=== PATIENT | female | born 1995 | race American Indian/Alaskan Native ===

== ENCOUNTER 2020-03-07 00:26 | Inpatient (IN) | payer MEDICAID ==
[2020-03-07] MEDS ORDERED: Lidocaine 1% 50 ML MDV INJECT PRN (00:50)
[2020-03-07] MEDS ORDERED: Methylergonovine 0.2 MG/1 ML Amp IM PRN (00:50)
[2020-03-07] MEDS ORDERED: Misoprostol 25 MCG (1/4 of 100 MCG) Tab VAG PRN ×2 (00:50)
[2020-03-07] MEDS ORDERED: Nalbuphine 10 MG/1 ML Vial IVPUSH PRN (00:50)
[2020-03-07] MEDS ORDERED: Sodium Chloride 0.9% 10 ML SDV IV PRN ×2 (00:50→09:50)
[2020-03-07] MEDS ORDERED: Butorphanol 1 MG/ML SDV IVPUSH PRN (00:50)
[2020-03-07] MEDS ORDERED: Sodium Chloride 0.9% 10 ML Syringe FLUSH PRN ×2 (00:50→09:50)
[2020-03-07] MEDS ORDERED: Terbutaline 1 MG/ML SDV SUBCUT PRN (00:50)
[2020-03-07] MEDS ORDERED: Tranexamic Acid 1,000 MG in Sodium Chloride 0.9% 100 ML IV PRN ×2 (00:50→18:43)
[2020-03-07] MEDS ORDERED: Sodium Chloride 0.9% 2.5 ML Syringe FLUSH PRN ×2 (00:50→09:50)
[2020-03-07] MEDS ORDERED: Misoprostol 200 MCG Tab PO PRN (00:50)
[2020-03-07] MEDS ORDERED: Water For Irrigation,Sterile 1,000 ML Container IRR PRN (00:50)
[2020-03-07] MEDS ORDERED: Carboprost Tromethamine 250 MCG/1 ML Amp IM PRN (00:50)
[2020-03-07] MEDS ORDERED: Oxytocin/0.9 % Sodium Chloride 30 UNIT/500 ML BAG IV SCH ×2 (01:00)
[2020-03-07] MEDS: Lactated Ringers 1,000 ML IV SCH ×3 (01:44→09:51)
[2020-03-07] MEDS ORDERED: Ondansetron 4 MG/2 ML SDV IVPUSH PRN (07:33)
--- NOTE | 2020-03-07 09:17 | PCM.PREANE ---
Preanesthetic Assessment - Anesthesia/Transfusion/Family Hx Anesthesia History: Prior Anesthesia Without Reaction Family History of Anesthesia Reaction: No Transfusion History: No Prior Transfusion(s) - Review of Systems General: No Symptoms Pulmonary: No Symptoms Cardiovascular: No Symptoms Gastrointestinal: No Symptoms Neurological: No Symptoms Other: Reports: None - Physical Assessment Height: 5 ft 8.75 in Weight: 136.078 kg ASA Class: 2 Mental Status: Alert & Oriented x3 Airway Class: Mallampati = 2 Dentition: Reports: Normal Dentition Thyro-Mental Finger Breadths: 3 Mouth Opening Finger Breadths: 3 ROM/Head Extension: Full Lungs: Clear to Auscultation, Normal Respiratory Effort Cardiovascular: Regular Rate, Regular Rhythm - Lab Values: Laboratory Last Values WBC 14.33 K/uL (4.0-11.0) H 03/07/20 01:25 RBC 4.25 M/uL (4.30-5.90) L 03/07/20 01:25 Hgb 12.0 g/dL (12.0-16.0) 03/07/20 01:25 Hct 35.9 % (36.0-46.0) L 03/07/20 01:25 MCV 84.5 fL (80.0-98.0) 03/07/20 01:25 MCH 28.2 pg (27.0-32.0) 03/07/20 01:25 MCHC 33.4 g/dL (31.0-37.0) 03/07/20 01:25 RDW Std Deviation 41.3 fl (28.0-62.0) 03/07/20 01:25 RDW Coeff of Garrett 14 % (11.0-15.0) 03/07/20 01:25 Plt Count 313 K/uL (150-400) 03/07/20 01:25 MPV 10.50 fL (7.40-12.00) 03/07/20 01:25 Nucleated RBC % 0.0 /100WBC 03/07/20 01:25 Nucleated RBCs # 0 K/uL 03/07/20 01:25 COVID-19 ([facility]) NEGATIVE (NEGATIVE) 03/07/20 01:45 Blood Type O POSITIVE 03/07/20 01:25 Antibody Screen NEGATIVE 03/07/20 01:25 - Allergies Allergies/Adverse Reactions: Allergies Allergy/AdvReac Type Severity Reaction Status Date / Time Sulfa (Sulfonamide Allergy Other Verified 03/07/20 00:48 Antibiotics) - Acknowledgements Anesthesia Type Planned: Epidural Pt an Appropriate Candidate for the Planned Anesthesia: Yes Alternatives and Risks of Anesthesia Discussed w Pt/Guardian: Yes Pt/Guardian Understands and Agrees with Anesthesia Plan: Yes PreAnesthesia Questionnaire HEENT History: Reports: None Cardiovascular History: Reports: None Respiratory History: Reports: None Gastrointestinal History: Reports: GERD Genitourinary History: Reports: None 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: : 2 Para: 1 LMP (Approximate): Musculoskeletal History: Reports: None Neurological History: Reports: None Psychiatric History: Reports: Anxiety, Depression Endocrine/Metabolic History: Reports: Other (See Below) Other Endocrine/Metabolic History: Took Thyroid medication at one time but no longer needs it now Hematologic History: Reports: None Immunologic History: Reports: None Oncologic (Cancer) History: Reports: None Dermatologic History: Reports: None - Infectious Disease History Infectious Disease History: Reports: None - Past Surgical History HEENT Surgical History: Reports: Tonsillectomy Other HEENT Surgeries/Procedures: wisdom tooth extraction - SUBSTANCE USE Smoking Status *Q: Former Smoker Second Hand Smoke Exposure: No Recreational Drug Use History: No - HOME MEDS Home Medications: Home Meds Acetaminophen [Tylenol Extra Strength] 1,000 mg PO Q4H PRN #0 tablet 01/05/15 [Rx] Ibuprofen [Motrin] 800 mg PO Q6H PRN #30 tablet 01/05/15 [Rx] oxyCODONE 5 mg PO Q2H PRN #30 tablet 01/05/15 [Rx] - CURRENT (IN HOUSE) MEDS Current Meds: Current Medications Butorphanol Tartrate (Stadol) 1 mg IVPUSH Q1H PRN PRN Reason: Pain Last Admin: 03/07/20 06:49 Dose: 1 mg Documented by: Carboprost Tromethamine (Hemabate Ds) 250 mcg IM ASDIRECTED PRN PRN Reason: Post Hemorrhage Oxytocin/Sodium Chloride (Oxytocin 30 Unit/500 Ml-Ns) 30 unit in 500 mls @ 500 mls/hr IV TITRATE SEAN Tranexamic Acid 1,000 mg/ (Sodium Chloride) 110 mls @ 660 mls/hr IV ONETIME PRN PRN Reason: Bleeding Oxytocin/Sodium Chloride (Oxytocin 30 Unit/500 Ml-Ns) 30 unit in 500 mls @ 2 mls/hr IV TITRATE SEAN; Protocol Lactated Ringer's (Ringers, Lactated) 1,000 mls @ 150 mls/hr IV ASDIRECTED SEAN Last Admin: 03/07/20 08:33 Dose: 999 mls/hr Documented by: Lidocaine HCl (Xylocaine 1%) 50 ml INJECT ONETIME PRN PRN Reason: Laceration repair Methylergonovine Maleate (Methergine) 0.2 mg IM ASDIRECTED PRN PRN Reason: Post Hemorrhage Misoprostol (Cytotec) 200 mcg PO ONETIME PRN PRN Reason: Post Hemorrhage Misoprostol (Cytotec) 25 mcg VAG ONETIME PRN PRN Reason: Cervical Ripening Last Admin: 03/07/20 01:44 Dose: 25 mcg Documented by: Misoprostol (Cytotec) 25 mcg VAG Q6H PRN PRN Reason: Cervical Ripening Nalbuphine HCl (Nubain) 10 mg IVPUSH Q1H PRN PRN Reason: Pain (severe 7-10) Ondansetron HCl (Zofran) 4 mg IVPUSH Q6H PRN PRN Reason: Nausea/Vomiting Last Admin: 03/07/20 07:41 Dose: 4 mg Documented by: Sodium Chloride (Saline Flush) 10 ml FLUSH ASDIRECTED PRN PRN Reason: Keep Vein Open Sodium Chloride (Saline Flush) 2.5 ml FLUSH ASDIRECTED PRN PRN Reason: Keep Vein Open Sodium Chloride (Normal Saline) 10 ml IV ASDIRECTED PRN PRN Reason: IV Use Sterile Water (Sterile Water For Irrigation) 1,000 ml IRR ASDIRECTED PRN PRN Reason: delivery Terbutaline Sulfate (Brethine) 0.25 mg SUBCUT ASDIRECTED PRN PRN Reason: Tacysystole
[2020-03-07] MEDS ORDERED: Bupivicaine/fentaNYL/NS 250 ML ONE (09:18)
[2020-03-07] MEDS ORDERED: Magnesium Sulfate/Water 4 GM in Premix Bag 1 BAG IV ONE (09:50)
[2020-03-07] MEDS ORDERED: Calcium Gluconate 10% 1 GM/10 ML SDV IV PRN (09:50)
[2020-03-07 09:55] LABS: BLOOD UREA NITROGEN,BUN 7 mg/dL (7.0-18.0); CARBON DIOXIDE,CO2 20.8 mmol/L (21.0-32.0); CHLORIDE,CL 103 mmol/L (98-107); GLUCOSE RANDOM 103 mg/dL (74-106); POTASSIUM,K 4.1 mmol/L (3.5-5.1); SODIUM,NA 135 mmol/L (136-145)
[2020-03-07] MEDS ORDERED: Magnesium Sulfate/Water 20 GM/500 ML BAG IV SCH (10:00)
[2020-03-07] MEDS: Magnesium Sulfate/Water 20 GM/500 ML BAG IV SCH ×2 (10:37→20:15)
[2020-03-07] MEDS ORDERED: Witch Hazel Medicated Pads 40/Jar TOP PRN (18:43)
[2020-03-07] MEDS ORDERED: Docusate Sodium 100 MG Cap PO PRN (18:43)
[2020-03-07] MEDS ORDERED: Bisacodyl 10 MG Supp RECTAL PRN (18:43)
[2020-03-07] MEDS ORDERED: Benzocaine/Menthol 20%-0.5% Spray 78 GM Cannister TOP PRN (18:43)
[2020-03-07] MEDS ORDERED: Lanolin 100% Cream 7 GM Tube TOP PRN (18:43)
[2020-03-07] MEDS ORDERED: Acetaminophen 500 MG Tab PO PRN (18:43)
[2020-03-07] MEDS ORDERED: Ibuprofen 400 MG Tab PO PRN (18:43)
--- NOTE | 2020-03-07 19:05 | PCM.DEL ---
L & D Note - General Info Date of Service: 03/07/20 Mother's Due Date: 03/13/20 - Delivery Note Labor: Augmented by ARM, Augmented by Oxytocin, Induced by Oxytocin Cervical Ripening Method: Misoprostil, Oxytocin Delivery Outcome: Livebirth Infant Delivery Method: Spontaneous Vaginal Delivery-Single Delivery Mode: Spontaneous Presentation: Right Occiput Anterior (ROGER) Nuchal Cord: None Anesthesia Type: Epidural Amniotic Fluid Description: Clear Episiotomy Type: None Laceration: 2nd Degree Suture type: Vicryl Suture size: 3-0 Placenta: Intact, Spontaneous Cord: 3 Vessels Estimated Blood Loss: 250 : Bulb Syringe, Stimulated, Warmed Provider: Josie Mayen Score 1 min: 9 Score 5 min: 9 Second Stage Interventions: Reports: Encouragement Given, Pushing, Feet in Foot Rests Delivery Comments (Free Text/Narrative):: Patient is a 25 year old who presented at 39w1d for induction of labor with pitocin and cytotec for essential hypertension and distance at 0038. Patient is O+, Rubella immune, GBS negative; received routine care. She has a history of essential hypertension, hypothyroidism and asthma. Cytotec was given at 0145. The patient was noted to have elevated blood pressures in the 150s per the nursing staff; labs to evaluate for preeclampsia, including CBC, CMP, uric acid and protein/creatinine ratio were ordered. AROM was done at 0811 with clear fluid. An Epidural was placed at 0928. The patient's protein/creatinine ratio was found to be 0.6 and magnesium was started at 1037 and blood pressures remained in the 120s systolically. The patient continued to progress and was complete at 1630. She began to push at 1740 and a live female infant weighing 3500 g was delivered via normal spontaneous vaginal delivery with Apgars of 9/9. The infant was suctioned and placed on the mother's abdomen. The cried spontaneously and was dried and stimulated. The cord was then clamped and cut by the father. The infant was moved to the warmer. Arterial and venous cord blood was collected as well as cord blood. The placenta was delivered spontaneously and found to be intact upon delivery; a three vessel cord was noted as well. Following delivery of the placenta the vaginal mucosa was inspected and there was noted to be a midline 2nd degree laceration. This was repaired with 3-0 Vicryl. The fundus was then massaged and the patient appeared to be hemodynamically stable. - General Info Date of Service: 03/07/20 - Patient Data Weight - Most Recent: 300 lb I&O - Last 24 Hours: Intake & Output 03/07/20 03/07/20 03/07/20 06:59 14:59 22:59 Intake Total 1701 203 Output Total 950 650 Balance 751 -447 Lab Results Last 24 Hours: Laboratory Results - last 24 hr 03/07/20 03/07/20 03/07/20 Range/Units 01:25 01:25 01:45 WBC 14.33 H (4.0-11.0) K/uL RBC 4.25 L (4.30-5.90) M/uL Hgb 12.0 (12.0-16.0) g/dL Hct 35.9 L (36.0-46.0) % MCV 84.5 (80.0-98.0) fL MCH 28.2 (27.0-32.0) pg MCHC 33.4 (31.0-37.0) g/dL RDW Std Deviation 41.3 (28.0-62.0) fl RDW Coeff of Garrett 14 (11.0-15.0) % Plt Count 313 (150-400) K/uL MPV 10.50 (7.40-12.00) fL Neutrophils % (Manual) (48.0-80.0) % Band Neutrophils % % Lymphocytes % (Manual) (16.0-40.0) % Monocytes % (Manual) (0.0-15.0) % Eosinophils % (Manual) (0.0-7.0) % Basophils % (Manual) (0.0-1.5) % Nucleated RBC % 0.0 /100WBC Absolute Seg Neuts (1.4-5.7) Band Neutrophils # Lymphocytes # (Manual) (0.6-2.4) Monocytes # (Manual) (0.0-0.8) Eosinophils # (Manual) (0.0-0.7) Basophils # (Manual) (0.0-0.1) Nucleated RBCs # 0 K/uL Cord ABG pH (7.18-7.38) Cord ABG Base Excess (-10--2) Cord VBG pH (7.25-7.45) Cord VBG Base Excess (-10--2) Sodium (136-145) mmol/L Potassium (3.5-5.1) mmol/L Chloride (98-107) mmol/L Carbon Dioxide (21.0-32.0) mmol/L BUN (7.0-18.0) mg/dL Creatinine (0.6-1.0) mg/dL Est Cr Clr Drug Dosing mL/min Estimated GFR (MDRD) ml/min Glucose (74-106) mg/dL Uric Acid (2.6-7.2) mg/dL Calcium (8.5-10.1) mg/dL Magnesium (1.8-2.4) mg/dL Total Bilirubin (0.2-1.0) mg/dL AST (15-37) IU/L ALT (14-63) IU/L Alkaline Phosphatase (46-116) U/L Total Protein (6.4-8.2) g/dL Albumin (3.4-5.0) g/dL Globulin (2.6-4.0) g/dL Albumin/Globulin Ratio (0.9-1.6) Ur Random Creatinine mg/dL U Random Total Protein (<11.9) mg/dL Protein/Creatinin Ratio COVID-19 ([facility]) NEGATIVE (NEGATIVE) Blood Type O POSITIVE Antibody Screen NEGATIVE 03/07/20 03/07/20 03/07/20 Range/Units 08:44 09:03 09:03 WBC 14.19 H (4.0-11.0) K/uL RBC 4.30 (4.30-5.90) M/uL Hgb 12.3 (12.0-16.0) g/dL Hct 36.2 (36.0-46.0) % MCV 84.2 (80.0-98.0) fL MCH 28.6 (27.0-32.0) pg MCHC 34.0 (31.0-37.0) g/dL RDW Std Deviation 40.6 (28.0-62.0) fl RDW Coeff of Garrett 14 (11.0-15.0) % Plt Count 355 (150-400) K/uL MPV 10.00 (7.40-12.00) fL Neutrophils % (Manual) 72 (48.0-80.0) % Band Neutrophils % 1 % Lymphocytes % (Manual) 13 L (16.0-40.0) % Monocytes % (Manual) 10 (0.0-15.0) % Eosinophils % (Manual) 2 (0.0-7.0) % Basophils % (Manual) 2 H (0.0-1.5) % Nucleated RBC % 0.0 /100WBC Absolute Seg Neuts 10.2 H (1.4-5.7) Band Neutrophils # 0.1 Lymphocytes # (Manual) 1.8 (0.6-2.4) Monocytes # (Manual) 1.4 H (0.0-0.8) Eosinophils # (Manual) 0.3 (0.0-0.7) Basophils # (Manual) 0.3 H (0.0-0.1) Nucleated RBCs # K/uL Cord ABG pH (7.18-7.38) Cord ABG Base Excess (-10--2) Cord VBG pH (7.25-7.45) Cord VBG Base Excess (-10--2) Sodium 135 L (136-145) mmol/L Potassium 4.1 (3.5-5.1) mmol/L Chloride 103 (98-107) mmol/L Carbon Dioxide 20.8 L (21.0-32.0) mmol/L BUN 7 (7.0-18.0) mg/dL Creatinine 0.6 (0.6-1.0) mg/dL Est Cr Clr Drug Dosing 148.50 mL/min Estimated GFR (MDRD) > 60.0 ml/min Glucose 103 (74-106) mg/dL Uric Acid 4.6 (2.6-7.2) mg/dL Calcium 7.9 L (8.5-10.1) mg/dL Magnesium (1.8-2.4) mg/dL Total Bilirubin 0.2 (0.2-1.0) mg/dL AST 11 L (15-37) IU/L ALT 13 L (14-63) IU/L Alkaline Phosphatase 120 H (46-116) U/L Total Protein 6.3 L (6.4-8.2) g/dL Albumin 2.6 L (3.4-5.0) g/dL Globulin 3.7 (2.6-4.0) g/dL Albumin/Globulin Ratio 0.7 L (0.9-1.6) Ur Random Creatinine 322.8 mg/dL U Random Total Protein 187.5 H (<11.9) mg/dL Protein/Creatinin Ratio 0.6 COVID-19 ([facility]) (NEGATIVE) Blood Type Antibody Screen 03/07/20 03/07/20 Range/Units 14:36 17:53 WBC (4.0-11.0) K/uL RBC (4.30-5.90) M/uL Hgb (12.0-16.0) g/dL Hct (36.0-46.0) % MCV (80.0-98.0) fL MCH (27.0-32.0) pg MCHC (31.0-37.0) g/dL RDW Std Deviation (28.0-62.0) fl RDW Coeff of Garrett (11.0-15.0) % Plt Count (150-400) K/uL MPV (7.40-12.00) fL Neutrophils % (Manual) (48.0-80.0) % Band Neutrophils % % Lymphocytes % (Manual) (16.0-40.0) % Monocytes % (Manual) (0.0-15.0) % Eosinophils % (Manual) (0.0-7.0) % Basophils % (Manual) (0.0-1.5) % Nucleated RBC % /100WBC Absolute Seg Neuts (1.4-5.7) Band Neutrophils # Lymphocytes # (Manual) (0.6-2.4) Monocytes # (Manual) (0.0-0.8) Eosinophils # (Manual) (0.0-0.7) Basophils # (Manual) (0.0-0.1) Nucleated RBCs # K/uL Cord ABG pH 7.241 (7.18-7.38) Cord ABG Base Excess -9 (-10--2) Cord VBG pH 7.274 (7.25-7.45) Cord VBG Base Excess -7 (-10--2) Sodium (136-145) mmol/L Potassium (3.5-5.1) mmol/L Chloride (98-107) mmol/L Carbon Dioxide (21.0-32.0) mmol/L BUN (7.0-18.0) mg/dL Creatinine (0.6-1.0) mg/dL Est Cr Clr Drug Dosing mL/min Estimated GFR (MDRD) ml/min Glucose (74-106) mg/dL Uric Acid (2.6-7.2) mg/dL Calcium (8.5-10.1) mg/dL Magnesium 3.9 H (1.8-2.4) mg/dL Total Bilirubin (0.2-1.0) mg/dL AST (15-37) IU/L ALT (14-63) IU/L Alkaline Phosphatase (46-116) U/L Total Protein (6.4-8.2) g/dL Albumin (3.4-5.0) g/dL Globulin (2.6-4.0) g/dL Albumin/Globulin Ratio (0.9-1.6) Ur Random Creatinine mg/dL U Random Total Protein (<11.9) mg/dL Protein/Creatinin Ratio COVID-19 ([facility]) (NEGATIVE) Blood Type Antibody Screen Med Orders - Current: Current Medications Acetaminophen (Tylenol Extra Strength) 500 mg PO Q4H PRN PRN Reason: Pain Acetaminophen (Tylenol Extra Strength) 1,000 mg PO Q4H PRN PRN Reason: Pain Benzocaine/Menthol (Dermoplast Pain Relief 20%-0.5% [place]) 0 gm TOP ASDIRECTED PRN PRN Reason: Perineal Comfort Measure Bisacodyl (Dulcolax) 10 mg RECTAL ONETIME PRN PRN Reason: Constipation Calcium Gluconate (Calcium Gluconate) 1 gm IV ASDIRECTED PRN PRN Reason: respiratory distress Docusate Sodium (Colace) 100 mg PO BID PRN PRN Reason: Constipation Emollient Ointment (Lansinoh Hpa) 0 gm TOP ASDIRECTED PRN PRN Reason: Sore Nipples Oxytocin/Sodium Chloride (Oxytocin 30 Unit/500 Ml-Ns) 30 unit in 500 mls @ 500 mls/hr IV TITRATE SEAN Oxytocin/Sodium Chloride (Oxytocin 30 Unit/500 Ml-Ns) 30 unit in 500 mls @ 2 mls/hr IV TITRATE SEAN; Protocol Last Titration: 03/07/20 17:50 Dose: 999 munits/min, 999 mls/hr Documented by: Lactated Ringer's (Ringers, Lactated) 1,000 mls @ 150 mls/hr IV ASDIRECTED [facility] Last Admin: 03/07/20 09:51 Dose: 25 mls/hr Documented by: Magnesium Sulfate (Magnesium Sulfate In Water Premix) 20 gm in 500 mls @ 50 mls/hr IV Q10H [facility] Last Admin: 03/07/20 10:37 Dose: 2 gm/hr, 50 mls/hr Documented by: Tranexamic Acid 1,000 mg/ (Sodium Chloride) 110 mls @ 660 mls/hr IV ONETIME PRN PRN Reason: Bleeding Ibuprofen (Motrin) 400 mg PO Q4H PRN PRN Reason: Pain Ibuprofen (Motrin) 800 mg PO Q6H PRN PRN Reason: Pain Witch Rosalba (Tucks) 1 pad TOP ASDIRECTED PRN PRN Reason: comfort care Discontinued Medications Butorphanol Tartrate (Stadol) 1 mg IVPUSH Q1H PRN PRN Reason: Pain Last Admin: 03/07/20 06:49 Dose: 1 mg Documented by: Carboprost Tromethamine (Hemabate Ds) 250 mcg IM ASDIRECTED PRN PRN Reason: Post Hemorrhage Tranexamic Acid 1,000 mg/ (Sodium Chloride) 110 mls @ 660 mls/hr IV ONETIME PRN PRN Reason: Bleeding Fentanyl/Bupivacaine HCl (Fentanyl/Bupivacaine/Ns 2 Mcg-0.125% 250 Ml) Confirm Administered Dose 250 mls @ as directed .ROUTE .STK-MED ONE Stop: 03/07/20 09:19 Magnesium Sulfate 4 gm/ Premix 100 mls @ 300 mls/hr IV BOLUS ONE Stop: 03/07/20 10:09 Last Infusion: 03/07/20 10:37 Dose: Infused Documented by: Magnesium Sulfate (Magnesium Sulfate In Water Premix) 20 gm in 500 mls @ 50 mls/hr IV ASDIRECTED [facility] Lidocaine HCl (Xylocaine 1%) 50 ml INJECT ONETIME PRN PRN Reason: Laceration repair Methylergonovine Maleate (Methergine) 0.2 mg IM ASDIRECTED PRN PRN Reason: Post Hemorrhage Misoprostol (Cytotec) 200 mcg PO ONETIME PRN PRN Reason: Post Hemorrhage Misoprostol (Cytotec) 25 mcg VAG ONETIME PRN PRN Reason: Cervical Ripening Last Admin: 03/07/20 01:44 Dose: 25 mcg Documented by: Misoprostol (Cytotec) 25 mcg VAG Q6H PRN PRN Reason: Cervical Ripening Nalbuphine HCl (Nubain) 10 mg IVPUSH Q1H PRN PRN Reason: Pain (severe 7-10) Ondansetron HCl (Zofran) 4 mg IVPUSH Q6H PRN PRN Reason: Nausea/Vomiting Last Admin: 03/07/20 07:41 Dose: 4 mg Documented by: Sodium Chloride (Saline Flush) 10 ml FLUSH ASDIRECTED PRN PRN Reason: Keep Vein Open Sodium Chloride (Saline Flush) 2.5 ml FLUSH ASDIRECTED PRN PRN Reason: Keep Vein Open Sodium Chloride (Normal Saline) 10 ml IV ASDIRECTED PRN PRN Reason: IV Use Sodium Chloride (Saline Flush) 10 ml FLUSH ASDIRECTED PRN PRN Reason: Keep Vein Open Sodium Chloride (Saline Flush) 2.5 ml FLUSH ASDIRECTED PRN PRN Reason: Keep Vein Open Sodium Chloride (Normal Saline) 10 ml IV ASDIRECTED PRN PRN Reason: IV Use Sterile Water (Sterile Water For Irrigation) 1,000 ml IRR ASDIRECTED PRN PRN Reason: delivery Terbutaline Sulfate (Brethine) 0.25 mg SUBCUT ASDIRECTED PRN PRN Reason: Tacysystole - Problem List & Annotations (1) Essential hypertension SNOMED Code(s): 13560294 Code(s): I10 - ESSENTIAL (PRIMARY) HYPERTENSION Status: Acute Current Visit: Yes (2) Pre-eclampsia added to pre-existing hypertension SNOMED Code(s): 74406655 Code(s): O11.9 - PRE-EXISTING HYPERTENSION WITH PRE-ECLAMPSIA, UNSP TRIMESTER Status: Acute Current Visit: Yes (3) Hypothyroidism SNOMED Code(s): 69261350 Code(s): E03.9 - HYPOTHYROIDISM, UNSPECIFIED Status: Acute Current Visit: Yes (4) Asthma SNOMED Code(s): 488018987 Code(s): J45.909 - UNSPECIFIED ASTHMA, UNCOMPLICATED Status: Acute Current Visit: Yes (5) Vaginal delivery SNOMED Code(s): 750084435 Code(s): O80 - ENCOUNTER FOR FULL-TERM UNCOMPLICATED DELIVERY Status: Acute Current Visit: No - Problem List Review Problem List Initiated/Reviewed/Updated: Yes - Assessment Assessment:: Patient is a 25 year old female who presented for induction of labor at 39w1d due to essential hypertension and distance. Elevated blood pressure and protein/creatinine ratio of 0.6 following admission, patient was started on Magnesium Sulfate for management of preeclampsia. of a live female weighing 3500 g with apgars of 9/9 - Plan Plan:: 1. GBS negative 2. Rubella Immune 3. O+ with a negative antibody screen 4. Preeclampsia - elevated blood pressure with protein/creatinine ratio of 0.6; uric acid 4.6, no evidence of thrombocytopenia or elevated LFTs. Patient started on Magnesium Sulfate at 1037; blood pressures remained stable. Patient did report a mild headache . - [place] in place to monitoring TIERRA - Continue Magnesium for 24 hours - Serial clinical exams - Monitor Magnesium levels q 6 hours - Patient restricted to bed rest with bathroom privileges 5. Essential hypertension - Methergine contraindicated for management of po stpartum hemorrhage 6. Hypothyroidism - did not require levothyroxine during care, TSH 2.34 and free T4 .79 on 08/26/19. 7. Asthma - Hemabate (carboprost) contraindicated for management of hemorrhage 8. as tolerated 9. Routine care
[2020-03-07] MEDS ORDERED: Albuterol 6.7 GM Inhaler INH PRN (19:34)
[2020-03-07] MEDS ORDERED: Meclizine 25 MG Tab PO PRN (19:36)
--- NOTE | 2020-03-07 19:51 | OR ---
SURGEON: Desi Alba M.D. DATE OF PROCEDURE: 03/07/2020 PREOPERATIVE DIAGNOSES: A 39-week intrauterine , mild preeclampsia. POSTOPERATIVE DIAGNOSES: A 39-week intrauterine , mild preeclampsia. PROCEDURES: Cytotec and Pitocin induction of labor, term spontaneous vaginal delivery, repair of second-degree laceration, magnesium seizure prophylaxis. PRIMARY SURGEON: Desi Alba MD COST MANAGER: Marcial Alvares MS4 ANESTHESIA: Epidural. ESTIMATED BLOOD LOSS: 300 mL. FINDINGS: Liveborn female, score of 9 and 9, weighing 7 pounds 11 ounces. Placenta spontaneous, Schultze intact, with 3 vessels. Second-degree perineal laceration, repaired. COMPLICATIONS: None known. DISPOSITION: Mother and baby are in LDR in good condition. BRIEF HISTORY: This is a 25-year-old female. She is G2, P1. She presents at 39 weeks' gestation for induction of labor due to a history of chronic hypertension as well as living remote from the hospital. She presented to Labor and Delivery. She received 2 doses of Cytotec. Through the night, she had increasing contractions, but her blood pressures also continued to elevate. Therefore, in the morning, preeclamptic labs were drawn with an elevated protein-creatinine ratio, blood pressures in the 140s to 150s over 80s to 90s. She was started on magnesium for seizure prophylaxis. She had artificial rupture of membranes. Intrauterine pressure catheter was placed. She was started on Pitocin, and she progressed to complete with primarily category 1 heart tones throughout labor. DESCRIPTION OF PROCEDURE: With the patient in dorsal lithotomy position, the patient pushed over a 20- minute time period to a 5+ station at which time the head was delivered spontaneously and atraumatically over the perineum with support with subsequent delivery of the infant's shoulders and body without any difficulty. The infant was bulb suctioned by nose and mouth and handed to the mother in the presence of the nurse attending delivery. The is a liveborn female, score of 9 and 9, weighing 7 pounds 11 ounces. After 2 minutes, the cord was doubly clamped and cut. Cord blood was collected for cord ABGs as well as routine cord blood sampling. Pitocin was initiated after delivery of the to assist with delivery of the placenta, which was delivered spontaneously, Schultze intact, with 3 vessels. Upon inspection of the pelvis and perineum, there were no periurethral, vaginal sidewall, cervical, or rectal lacerations. There was a very small second-degree perineal laceration that was repaired with a running lock suture of 3-0 Vicryl for the vaginal mucosa, a deep running suture on the perineum, and a subcuticular suture of the 3-0 Vicryl for the skin. Final sponge, needle, and instrument counts were correct. There were no known complications. Mother and baby remained in LDR in good condition. EDGAR ALBARADO /[id number]
[2020-03-07] MEDS: Ibuprofen 800 MG Tab PO PRN (23:19)
[2020-03-08] MEDS: Magnesium Sulfate/Water 20 GM/500 ML BAG IV SCH ×2 (06:14→16:29)
--- NOTE | 2020-03-08 07:17 | PCM48HPAN ---
Post Anesthesia Note - EVALUATION WITHIN 48HRS OF ANESTHETIC Vital Signs in Normal Range: Yes Patient Participated in Evaluation: Yes Respiratory Function Stable: Yes Airway Patent: Yes Cardiovascular Function Stable: Yes Hydration Status Stable: Yes Pain Control Satisfactory: Yes Nausea and Vomiting Control Satisfactory: Yes Mental Status Recovered: Yes Vital Signs: Last Vital Signs Temp 36.4 C 03/08/20 04:05 Pulse 85 03/08/20 04:05 Resp 20 03/08/20 04:05 BP 119/90 03/08/20 04:05 Pulse Ox 96 03/08/20 04:05
--- NOTE | 2020-03-08 08:32 | PCM.PNPP ---
<Cyndi Jones - Last Filed: 03/08/20 08:26> - General Info Date of Service: 03/08/20 Admission Dx/Problem (Free Text): 25 year old who was admitted at 39w1d for induction of labor with cytotec and pitocin for essential hypertension and distance on 03/07/20. of a female weighing 3500 g with Apgars 9/9 Subjective Update: Patient is doing well today. She denies any abdominal pain, headaches or changes in her vision. She has a moe in place; she has not yet had a bowel movement but reported some cramping abdominal pain like she would need a bowel movement. She has been and this has going well. She reports that her bleeding has been stable. She also notes that she has had some aching lower back pain. Functional Status: Reports: Pain Controlled, Tolerating Diet - Review of Systems General: Reports: No Symptoms HEENT: Reports: No Symptoms Pulmonary: Reports: No Symptoms Cardiovascular: Reports: No Symptoms Gastrointestinal: Reports: No Symptoms Genitourinary: Reports: No Symptoms Musculoskeletal: Reports: No Symptoms Skin: Reports: No Symptoms Neurological: Reports: No Symptoms Psychiatric: Reports: No Symptoms - General Info Date of Service: 03/08/20 - Patient Data Vital Signs - Most Recent: Last Vital Signs Temp 97.6 F 03/08/20 04:05 Pulse 85 03/08/20 04:05 Resp 20 03/08/20 04:05 BP 119/90 03/08/20 04:05 Pulse Ox 96 03/08/20 04:05 Weight - Most Recent: 294 lb 5.074 oz I&O - Last 24 Hours: Intake & Output 03/07/20 03/08/20 03/08/20 22:59 06:59 14:59 Intake Total 829 Output Total 650 Balance 179 Lab Results - Last 24 Hours: Laboratory Results - last 24 hr 03/07/20 03/07/20 03/07/20 Range/Units 08:44 09:03 09:03 WBC 14.19 H (4.0-11.0) K/uL RBC 4.30 (4.30-5.90) M/uL Hgb 12.3 (12.0-16.0) g/dL Hct 36.2 (36.0-46.0) % MCV 84.2 (80.0-98.0) fL MCH 28.6 (27.0-32.0) pg MCHC 34.0 (31.0-37.0) g/dL RDW Std Deviation 40.6 (28.0-62.0) fl RDW Coeff of Garrett 14 (11.0-15.0) % Plt Count 355 (150-400) K/uL MPV 10.00 (7.40-12.00) fL Neutrophils % (Manual) 72 (48.0-80.0) % Band Neutrophils % 1 % Lymphocytes % (Manual) 13 L (16.0-40.0) % Monocytes % (Manual) 10 (0.0-15.0) % Eosinophils % (Manual) 2 (0.0-7.0) % Basophils % (Manual) 2 H (0.0-1.5) % Nucleated RBC % 0.0 /100WBC Absolute Seg Neuts 10.2 H (1.4-5.7) Band Neutrophils # 0.1 Lymphocytes # (Manual) 1.8 (0.6-2.4) Monocytes # (Manual) 1.4 H (0.0-0.8) Eosinophils # (Manual) 0.3 (0.0-0.7) Basophils # (Manual) 0.3 H (0.0-0.1) Cord ABG pH (7.18-7.38) Cord ABG Base Excess (-10--2) Cord VBG pH (7.25-7.45) Cord VBG Base Excess (-10--2) Sodium 135 L (136-145) mmol/L Potassium 4.1 (3.5-5.1) mmol/L Chloride 103 (98-107) mmol/L Carbon Dioxide 20.8 L (21.0-32.0) mmol/L BUN 7 (7.0-18.0) mg/dL Creatinine 0.6 (0.6-1.0) mg/dL Est Cr Clr Drug Dosing 148.50 mL/min Estimated GFR (MDRD) > 60.0 ml/min Glucose 103 (74-106) mg/dL Uric Acid 4.6 (2.6-7.2) mg/dL Calcium 7.9 L (8.5-10.1) mg/dL Magnesium (1.8-2.4) mg/dL Total Bilirubin 0.2 (0.2-1.0) mg/dL AST 11 L (15-37) IU/L ALT 13 L (14-63) IU/L Alkaline Phosphatase 120 H (46-116) U/L Total Protein 6.3 L (6.4-8.2) g/dL Albumin 2.6 L (3.4-5.0) g/dL Globulin 3.7 (2.6-4.0) g/dL Albumin/Globulin Ratio 0.7 L (0.9-1.6) Ur Random Creatinine 322.8 mg/dL U Random Total Protein 187.5 H (<11.9) mg/dL Protein/Creatinin Ratio 0.6 03/07/20 03/07/20 03/07/20 Range/Units 14:36 17:53 20:25 WBC (4.0-11.0) K/uL RBC (4.30-5.90) M/uL Hgb (12.0-16.0) g/dL Hct (36.0-46.0) % MCV (80.0-98.0) fL MCH (27.0-32.0) pg MCHC (31.0-37.0) g/dL RDW Std Deviation (28.0-62.0) fl RDW Coeff of Garrett (11.0-15.0) % Plt Count (150-400) K/uL MPV (7.40-12.00) fL Neutrophils % (Manual) (48.0-80.0) % Band Neutrophils % % Lymphocytes % (Manual) (16.0-40.0) % Monocytes % (Manual) (0.0-15.0) % Eosinophils % (Manual) (0.0-7.0) % Basophils % (Manual) (0.0-1.5) % Nucleated RBC % /100WBC Absolute Seg Neuts (1.4-5.7) Band Neutrophils # Lymphocytes # (Manual) (0.6-2.4) Monocytes # (Manual) (0.0-0.8) Eosinophils # (Manual) (0.0-0.7) Basophils # (Manual) (0.0-0.1) Cord ABG pH 7.241 (7.18-7.38) Cord ABG Base Excess -9 (-10--2) Cord VBG pH 7.274 (7.25-7.45) Cord VBG Base Excess -7 (-10--2) Sodium (136-145) mmol/L Potassium (3.5-5.1) mmol/L Chloride (98-107) mmol/L Carbon Dioxide (21.0-32.0) mmol/L BUN (7.0-18.0) mg/dL Creatinine (0.6-1.0) mg/dL Est Cr Clr Drug Dosing mL/min Estimated GFR (MDRD) ml/min Glucose (74-106) mg/dL Uric Acid (2.6-7.2) mg/dL Calcium (8.5-10.1) mg/dL Magnesium 3.9 H 4.1 H (1.8-2.4) mg/dL Total Bilirubin (0.2-1.0) mg/dL AST (15-37) IU/L ALT (14-63) IU/L Alkaline Phosphatase (46-116) U/L Total Protein (6.4-8.2) g/dL Albumin (3.4-5.0) g/dL Globulin (2.6-4.0) g/dL Albumin/Globulin Ratio (0.9-1.6) Ur Random Creatinine mg/dL U Random Total Protein (<11.9) mg/dL Protein/Creatinin Ratio 03/08/20 Range/Units 02:32 WBC (4.0-11.0) K/uL RBC (4.30-5.90) M/uL Hgb (12.0-16.0) g/dL Hct (36.0-46.0) % MCV (80.0-98.0) fL MCH (27.0-32.0) pg MCHC (31.0-37.0) g/dL RDW Std Deviation (28.0-62.0) fl RDW Coeff of Garrett (11.0-15.0) % Plt Count (150-400) K/uL MPV (7.40-12.00) fL Neutrophils % (Manual) (48.0-80.0) % Band Neutrophils % % Lymphocytes % (Manual) (16.0-40.0) % Monocytes % (Manual) (0.0-15.0) % Eosinophils % (Manual) (0.0-7.0) % Basophils % (Manual) (0.0-1.5) % Nucleated RBC % /100WBC Absolute Seg Neuts (1.4-5.7) Band Neutrophils # Lymphocytes # (Manual) (0.6-2.4) Monocytes # (Manual) (0.0-0.8) Eosinophils # (Manual) (0.0-0.7) Basophils # (Manual) (0.0-0.1) Cord ABG pH (7.18-7.38) Cord ABG Base Excess (-10--2) Cord VBG pH (7.25-7.45) Cord VBG Base Excess (-10--2) Sodium (136-145) mmol/L Potassium (3.5-5.1) mmol/L Chloride (98-107) mmol/L Carbon Dioxide (21.0-32.0) mmol/L BUN (7.0-18.0) mg/dL Creatinine (0.6-1.0) mg/dL Est Cr Clr Drug Dosing mL/min Estimated GFR (MDRD) ml/min Glucose (74-106) mg/dL Uric Acid (2.6-7.2) mg/dL Calcium (8.5-10.1) mg/dL Magnesium 4.6 H (1.8-2.4) mg/dL Total Bilirubin (0.2-1.0) mg/dL AST (15-37) IU/L ALT (14-63) IU/L Alkaline Phosphatase (46-116) U/L Total Protein (6.4-8.2) g/dL Albumin (3.4-5.0) g/dL Globulin (2.6-4.0) g/dL Albumin/Globulin Ratio (0.9-1.6) Ur Random Creatinine mg/dL U Random Total Protein (<11.9) mg/dL Protein/Creatinin Ratio Med Orders - Current: Current Medications Acetaminophen (Tylenol Extra Strength) 500 mg PO Q4H PRN PRN Reason: Pain Acetaminophen (Tylenol Extra Strength) 1,000 mg PO Q4H PRN PRN Reason: Pain Albuterol (Proventil Hfa) 0 gm INH Q4H PRN PRN Reason: Shortness of Breath Benzocaine/Menthol (Dermoplast Pain Relief 20%-0.5% Star) 0 gm TOP ASDIRECTED PRN PRN Reason: Perineal Comfort Measure Last Admin: 03/07/20 20:14 Dose: 1 canister Documented by: Bisacodyl (Dulcolax) 10 mg RECTAL ONETIME PRN PRN Reason: Constipation Calcium Gluconate (Calcium Gluconate) 1 gm IV ASDIRECTED PRN PRN Reason: respiratory distress Docusate Sodium (Colace) 100 mg PO BID PRN PRN Reason: Constipation Emollient Ointment (Lansinoh Hpa) 0 gm TOP ASDIRECTED PRN PRN Reason: Sore Nipples Last Admin: 03/07/20 20:14 Dose: 7 gm Documented by: Oxytocin/Sodium Chloride (Oxytocin 30 Unit/500 Ml-Ns) 30 unit in 500 mls @ 500 mls/hr IV TITRATE SEAN Oxytocin/Sodium Chloride (Oxytocin 30 Unit/500 Ml-Ns) 30 unit in 500 mls @ 2 mls/hr IV TITRATE [facility]; Protocol Last Titration: 03/07/20 17:50 Dose: 999 munits/min, 999 mls/hr Documented by: Lactated Ringer's (Ringers, Lactated) 1,000 mls @ 150 mls/hr IV ASDIRECTED SEAN Last Admin: 03/07/20 09:51 Dose: 25 mls/hr Documented by: Magnesium Sulfate (Magnesium Sulfate In Water Premix) 20 gm in 500 mls @ 50 mls/hr IV Q10H SEAN Last Admin: 03/08/20 06:14 Dose: 2 gm/hr, 50 mls/hr Documented by: Tranexamic Acid 1,000 mg/ (Sodium Chloride) 110 mls @ 660 mls/hr IV ONETIME PRN PRN Reason: Bleeding Ibuprofen (Motrin) 400 mg PO Q4H PRN PRN Reason: Pain Ibuprofen (Motrin) 800 mg PO Q6H PRN PRN Reason: Pain Last Admin: 03/07/20 23:19 Dose: 800 mg Documented by: Meclizine HCl (Antivert) 25 mg PO Q6H PRN PRN Reason: Nausea Witch Rosalba (Tucks) 1 pad TOP ASDIRECTED PRN PRN Reason: comfort care Last Admin: 03/07/20 20:14 Dose: 1 container Documented by: Discontinued Medications Butorphanol Tartrate (Stadol) 1 mg IVPUSH Q1H PRN PRN Reason: Pain Last Admin: 03/07/20 06:49 Dose: 1 mg Documented by: Carboprost Tromethamine (Hemabate Ds) 250 mcg IM ASDIRECTED PRN PRN Reason: Post Hemorrhage Tranexamic Acid 1,000 mg/ (Sodium Chloride) 110 mls @ 660 mls/hr IV ONETIME PRN PRN Reason: Bleeding Fentanyl/Bupivacaine HCl (Fentanyl/Bupivacaine/Ns 2 Mcg-0.125% 250 Ml) Confirm Administered Dose 250 mls @ as directed .ROUTE .STK-MED ONE Stop: 03/07/20 09:19 Last Admin: 03/07/20 20:58 Dose: Not Given Documented by: Magnesium Sulfate 4 gm/ Premix 100 mls @ 300 mls/hr IV BOLUS ONE Stop: 03/07/20 10:09 Last Infusion: 03/07/20 10:37 Dose: Infused Documented by: Magnesium Sulfate (Magnesium Sulfate In Water Premix) 20 gm in 500 mls @ 50 mls/hr IV ASDIRECTED SEAN Lidocaine HCl (Xylocaine 1%) 50 ml INJECT ONETIME PRN PRN Reason: Laceration repair Methylergonovine Maleate (Methergine) 0.2 mg IM ASDIRECTED PRN PRN Reason: Post Hemorrhage Misoprostol (Cytotec) 200 mcg PO ONETIME PRN PRN Reason: Post Hemorrhage Misoprostol (Cytotec) 25 mcg VAG ONETIME PRN PRN Reason: Cervical Ripening Last Admin: 03/07/20 01:44 Dose: 25 mcg Documented by: Misoprostol (Cytotec) 25 mcg VAG Q6H PRN PRN Reason: Cervical Ripening Nalbuphine HCl (Nubain) 10 mg IVPUSH Q1H PRN PRN Reason: Pain (severe 7-10) Ondansetron HCl (Zofran) 4 mg IVPUSH Q6H PRN PRN Reason: Nausea/Vomiting Last Admin: 03/07/20 07:41 Dose: 4 mg Documented by: Sodium Chloride (Saline Flush) 10 ml FLUSH ASDIRECTED PRN PRN Reason: Keep Vein Open Sodium Chloride (Saline Flush) 2.5 ml FLUSH ASDIRECTED PRN PRN Reason: Keep Vein Open Sodium Chloride (Normal Saline) 10 ml IV ASDIRECTED PRN PRN Reason: IV Use Sodium Chloride (Saline Flush) 10 ml FLUSH ASDIRECTED PRN PRN Reason: Keep Vein Open Sodium Chloride (Saline Flush) 2.5 ml FLUSH ASDIRECTED PRN PRN Reason: Keep Vein Open Sodium Chloride (Normal Saline) 10 ml IV ASDIRECTED PRN PRN Reason: IV Use Sterile Water (Sterile Water For Irrigation) 1,000 ml IRR ASDIRECTED PRN PRN Reason: delivery Terbutaline Sulfate (Brethine) 0.25 mg SUBCUT ASDIRECTED PRN PRN Reason: Tacysystole - Interaction Infant Disposition, : [place] at Bedside Infant Interaction: Not Applicable Infant Feeding: Attempted ; Nursed Fair/Poor Support Person: Mother - Recovery Exam Fundal Tone: Firm Fundal Level: At Umbilicus Fundal Placement: Midline Lochia Amount: Small Lochia Color: Rubra/Red Perineum Description: Other (see below) Other Perinuem Description: 2nd degree laceration. Episiotomy/Laceration: Approximated Bladder Status: Indwelling Catheter in Place Urinary Elimination: Indwelling Catheter - Exam General: Alert, Oriented HEENT: Pupils Equal, Pupils Reactive Lungs: Clear to Auscultation, Normal Respiratory Effort Cardiovascular: Regular Rate, Regular Rhythm GI/Abdominal Exam: Normal Bowel Sounds, Non-Tender, No Distention, No Mass Extremities: Normal Inspection, Non-Tender, No Pedal Edema, Normal Capillary Refill Skin: Warm, Dry, Intact Neurological: No New Focal Deficit, Other (Patellar reflexes 1+ bilaterally, absence of clonus ) Psy/Mental Status: Alert, Normal Affect, Normal Mood - Problem List & Annotations (1) Essential hypertension SNOMED Code(s): 34545879 Code(s): I10 - ESSENTIAL (PRIMARY) HYPERTENSION Status: Acute Current Visit: Yes (2) Pre-eclampsia added to pre-existing hypertension SNOMED Code(s): 75488017 Code(s): O11.9 - PRE-EXISTING HYPERTENSION WITH PRE-ECLAMPSIA, UNSP TRIMESTER Status: Acute Current Visit: Yes (3) Hypothyroidism SNOMED Code(s): 82433247 Code(s): E03.9 - HYPOTHYROIDISM, UNSPECIFIED Status: Acute Current Visit: Yes (4) Asthma SNOMED Code(s): 169411664 Code(s): J45.909 - UNSPECIFIED ASTHMA, UNCOMPLICATED Status: Acute Current Visit: Yes (5) Vaginal delivery SNOMED Code(s): 398237215 Code(s): O80 - ENCOUNTER FOR FULL-TERM UNCOMPLICATED DELIVERY Status: Acute Current Visit: No - Problem List Review Problem List Initiated/Reviewed/Updated: Yes - Assessment Assessment:: Patient is a 25 year old female who presented for induction of labor at 39w 1d due to essential hypertension and distance. Elevated blood pressure and protein/creatinine ratio of 0.6 following admission, patient was started on Magnesium Sulfate for management of preeclampsia. Post day 1 of a live female weighing 3500 g with apgars of 9/9 - Plan Plan:: 1. GBS negative 2. Rubella Immune 3. O+ with a negative antibody screen 4. Preeclampsia - elevated blood pressure with protein/creatinine ratio of 0.6; uric acid 4.6, no evidence of thrombocytopenia or elevated LFTs. Patient started on Magnesium Sulfate at 1037; blood pressures remained stable. Patient did report a mild headache but this has resolved. Today she denies any headaches or changes in vision or abdominal pain. Magnesium levels have remained 3.9, 4.1 and 4.6. Blood pressure has remained stable in 120s/70s overnight; reflexes were 1+; other vital signs remained stable. - Moe in place to monitoring I/Os - Continue Magnesium for 24 hours - Observe the patient for 24 hours following discontinuation of Magnesium - Serial clinical exams - Monitor Magnesium levels q 6 hours - Patient restricted to bed rest with bathroom privileges 5. Essential hypertension - Methergine contraindicated for management of hemorrhage 6. Hypothyroidism - did not require levothyroxine during care, TSH 2.34 and free T4 .79 on 08/26/19. 7. Asthma - Hemabate (carboprost) contraindicated for management of hemorrhage 8. as tolerated 9. Routine care 10. Plan to discharge home following observation period after Magnesium discontinuation <Brayan Queen - Last Filed: 03/08/20 11:44> - Patient Data Vital Signs - Most Recent: Last Vital Signs Temp 36.4 C 03/08/20 04:05 Pulse 80 03/08/20 07:30 Resp 18 03/08/20 07:30 BP 107/65 03/08/20 07:30 Pulse Ox 94 L 03/08/20 07:30 I&O - Last 24 Hours: Intake & Output 03/07/20 03/08/20 03/08/20 22:59 06:59 14:59 Intake Total 829 Output Total 650 Balance 179 Lab Results - Last 24 Hours: Laboratory Results - last 24 hr 03/07/20 03/07/20 03/07/20 Range/Units 14:36 17:53 20:25 Hgb (12.0-16.0) g/dL Hct (36.0-46.0) % Cord ABG pH 7.241 (7.18-7.38) Cord ABG Base Excess -9 (-10--2) Cord VBG pH 7.274 (7.25-7.45) Cord VBG Base Excess -7 (-10--2) Magnesium 3.9 H 4.1 H (1.8-2.4) mg/dL 03/08/20 03/08/20 03/08/20 Range/Units 02:32 08:30 08:30 Hgb 10.8 L (12.0-16.0) g/dL Hct 33.1 L (36.0-46.0) % Cord ABG pH (7.18-7.38) Cord ABG Base Excess (-10--2) Cord VBG pH (7.25-7.45) Cord VBG Base Excess (-10--2) Magnesium 4.6 H 4.4 H (1.8-2.4) mg/dL Med Orders - Current: Current Medications Acetaminophen (Tylenol Extra Strength) 500 mg PO Q4H PRN PRN Reason: Pain Acetaminophen (Tylenol Extra Strength) 1,000 mg PO Q4H PRN PRN Reason: Pain Albuterol (Proventil Hfa) 0 gm INH Q4H PRN PRN Reason: Shortness of Breath Benzocaine/Menthol (Dermoplast Pain Relief 20%-0.5% Star) 0 gm TOP ASDIRECTED PRN PRN Reason: Perineal Comfort Measure Last Admin: 03/07/20 20:14 Dose: 1 canister Documented by: Bisacodyl (Dulcolax) 10 mg RECTAL ONETIME PRN PRN Reason: Constipation Calcium Gluconate (Calcium Gluconate) 1 gm IV ASDIRECTED PRN PRN Reason: respiratory distress Docusate Sodium (Colace) 100 mg PO BID PRN PRN Reason: Constipation Emollient Ointment (Lansinoh Hpa) 0 gm TOP ASDIRECTED PRN PRN Reason: Sore Nipples Last Admin: 03/07/20 20:14 Dose: 7 gm Documented by: Oxytocin/Sodium Chloride (Oxytocin 30 Unit/500 Ml-Ns) 30 unit in 500 mls @ 500 mls/hr IV TITRATE SEAN Oxytocin/Sodium Chloride (Oxytocin 30 Unit/500 Ml-Ns) 30 unit in 500 mls @ 2 mls/hr IV TITRATE SEAN; Protocol Last Titration: 03/07/20 17:50 Dose: 999 munits/min, 999 mls/hr Documented by: Lactated Ringer's (Ringers, Lactated) 1,000 mls @ 150 mls/hr IV ASDIRECTED SEAN Last Admin: 03/07/20 09:51 Dose: 25 mls/hr Documented by: Magnesium Sulfate (Magnesium Sulfate In Water Premix) 20 gm in 500 mls @ 50 mls/hr IV Q10H SEAN Last Admin: 03/08/20 06:14 Dose: 2 gm/hr, 50 mls/hr Documented by: Tranexamic Acid 1,000 mg/ (Sodium Chloride) 110 mls @ 660 mls/hr IV ONETIME PRN PRN Reason: Bleeding Ibuprofen (Motrin) 400 mg PO Q4H PRN PRN Reason: Pain Ibuprofen (Motrin) 800 mg PO Q6H PRN PRN Reason: Pain Last Admin: 03/07/20 23:19 Dose: 800 mg Documented by: Meclizine HCl (Antivert) 25 mg PO Q6H PRN PRN Reason: Nausea Witch Rosalba (Tucks) 1 pad TOP ASDIRECTED PRN PRN Reason: comfort care Last Admin: 03/07/20 20:14 Dose: 1 container Documented by: Discontinued Medications Butorphanol Tartrate (Stadol) 1 mg IVPUSH Q1H PRN PRN Reason: Pain Last Admin: 03/07/20 06:49 Dose: 1 mg Documented by: Carboprost Tromethamine (Hemabate Ds) 250 mcg IM ASDIRECTED PRN PRN Reason: Post Hemorrhage Tranexamic Acid 1,000 mg/ (Sodium Chloride) 110 mls @ 660 mls/hr IV ONETIME PRN PRN Reason: Bleeding Fentanyl/Bupivacaine HCl (Fentanyl/Bupivacaine/Ns 2 Mcg-0.125% 250 Ml) Confirm Administered Dose 250 mls @ as directed .ROUTE .STK-MED ONE Stop: 03/07/20 09:19 Last Admin: 03/07/20 20:58 Dose: Not Given Documented by: Magnesium Sulfate 4 gm/ Premix 100 mls @ 300 mls/hr IV BOLUS ONE Stop: 03/07/20 10:09 Last Infusion: 03/07/20 10:37 Dose: Infused Documented by: Magnesium Sulfate (Magnesium Sulfate In Water Premix) 20 gm in 500 mls @ 50 mls/hr IV ASDIRECTED SEAN Lidocaine HCl (Xylocaine 1%) 50 ml INJECT ONETIME PRN PRN Reason: Laceration repair Methylergonovine Maleate (Methergine) 0.2 mg IM ASDIRECTED PRN PRN Reason: Post Hemorrhage Misoprostol (Cytotec) 200 mcg PO ONETIME PRN PRN Reason: Post Hemorrhage Misoprostol (Cytotec) 25 mcg VAG ONETIME PRN PRN Reason: Cervical Ripening Last Admin: 03/07/20 01:44 Dose: 25 mcg Documented by: Misoprostol (Cytotec) 25 mcg VAG Q6H PRN PRN Reason: Cervical Ripening Nalbuphine HCl (Nubain) 10 mg IVPUSH Q1H PRN PRN Reason: Pain (severe 7-10) Ondansetron HCl (Zofran) 4 mg IVPUSH Q6H PRN PRN Reason: Nausea/Vomiting Last Admin: 03/07/20 07:41 Dose: 4 mg Documented by: Sodium Chloride (Saline Flush) 10 ml FLUSH ASDIRECTED PRN PRN Reason: Keep Vein Open Sodium Chloride (Saline Flush) 2.5 ml FLUSH ASDIRECTED PRN PRN Reason: Keep Vein Open Sodium Chloride (Normal Saline) 10 ml IV ASDIRECTED PRN PRN Reason: IV Use Sodium Chloride (Saline Flush) 10 ml FLUSH ASDIRECTED PRN PRN Reason: Keep Vein Open Sodium Chloride (Saline Flush) 2.5 ml FLUSH ASDIRECTED PRN PRN Reason: Keep Vein Open Sodium Chloride (Normal Saline) 10 ml IV ASDIRECTED PRN PRN Reason: IV Use Sterile Water (Sterile Water For Irrigation) 1,000 ml IRR ASDIRECTED PRN PRN Reason: delivery Terbutaline Sulfate (Brethine) 0.25 mg SUBCUT ASDIRECTED PRN PRN Reason: Tacysystole - Plan Plan:: Patient seen and examined. BP normal and mild range, asymptomatic. Good UO. Bleeding light, Hgb 10.8, no s/s of anemia. Plan to continue Mg for 24hr . Discharge tomorrow if meeting all milestones.
[2020-03-08] MEDS: Ibuprofen 800 MG Tab PO PRN ×2 (12:45→20:52)
[2020-03-08] MEDS: Acetaminophen 500 MG Tab PO PRN (23:10)
[2020-03-09] MEDS: Ibuprofen 800 MG Tab PO PRN ×3 (04:07→19:50)
--- NOTE | 2020-03-09 08:09 | PCM.PNPP ---
- General Info Date of Service: 03/09/20 Admission Dx/Problem (Free Text): 25 year old who was admitted at 39w1d for induction of labor with cytotec and pitocin for essential hypertension and distance on 03/07/20. of a female infant weighing 3500 g with Apgars 9/9 Subjective Update: Patient is doing well. She has been able to ambulate, urinate and defecate without significant pain. She reports a good appetite. She denies any significant bleeding. She does have some back pain and cramping; Tylenol has been helping relieve her pain. She denies any headache or changes in vision. Functional Status: Reports: Pain Controlled, Tolerating Diet, Ambulating, Urinating - Review of Systems General: Reports: No Symptoms HEENT: Reports: No Symptoms Pulmonary: Reports: No Symptoms Cardiovascular: Reports: No Symptoms Gastrointestinal: Reports: No Symptoms Genitourinary: Reports: No Symptoms Musculoskeletal: Reports: No Symptoms Skin: Reports: No Symptoms Neurological: Reports: No Symptoms Psychiatric: Reports: No Symptoms - General Info Date of Service: 03/09/20 - Patient Data Vital Signs - Most Recent: Last Vital Signs Temp 98.1 F 03/09/20 05:05 Pulse 71 03/09/20 05:05 Resp 17 03/09/20 05:05 BP 122/80 03/09/20 05:05 Pulse Ox 96 03/09/20 05:05 Weight - Most Recent: 294 lb 5.074 oz I&O - Last 24 Hours: Intake & Output 03/08/20 03/09/20 03/09/20 22:59 06:59 14:59 Intake Total 244 Output Total 1290 Balance -1046 Lab Results - Last 24 Hours: Laboratory Results - last 24 hr 03/08/20 03/08/20 03/08/20 Range/Units 08:30 08:30 14:29 Hgb 10.8 L (12.0-16.0) g/dL Hct 33.1 L (36.0-46.0) % Magnesium 4.4 H 4.5 H (1.8-2.4) mg/dL Med Orders - Current: Current Medications Acetaminophen (Tylenol Extra Strength) 500 mg PO Q4H PRN PRN Reason: Pain Acetaminophen (Tylenol Extra Strength) 1,000 mg PO Q4H PRN PRN Reason: Pain Last Admin: 03/08/20 23:10 Dose: 1,000 mg Documented by: Albuterol (Proventil Hfa) 0 gm INH Q4H PRN PRN Reason: Shortness of Breath Benzocaine/Menthol (Dermoplast Pain Relief 20%-0.5% Vinson) 0 gm TOP ASDIRECTED PRN PRN Reason: Perineal Comfort Measure Last Admin: 03/07/20 20:14 Dose: 1 canister Documented by: Bisacodyl (Dulcolax) 10 mg RECTAL ONETIME PRN PRN Reason: Constipation Docusate Sodium (Colace) 100 mg PO BID PRN PRN Reason: Constipation Emollient Ointment (Lansinoh Hpa) 0 gm TOP ASDIRECTED PRN PRN Reason: Sore Nipples Last Admin: 03/07/20 20:14 Dose: 7 gm Documented by: Oxytocin/Sodium Chloride (Oxytocin 30 Unit/500 Ml-Ns) 30 unit in 500 mls @ 500 mls/hr IV TITRATE SEAN Oxytocin/Sodium Chloride (Oxytocin 30 Unit/500 Ml-Ns) 30 unit in 500 mls @ 2 mls/hr IV TITRATE SEAN; Protocol Last Titration: 03/07/20 17:50 Dose: 999 munits/min, 999 mls/hr Documented by: Lactated Ringer's (Ringers, Lactated) 1,000 mls @ 150 mls/hr IV ASDIRECTED SEAN Last Admin: 03/07/20 09:51 Dose: 25 mls/hr Documented by: Tranexamic Acid 1,000 mg/ (Sodium Chloride) 110 mls @ 660 mls/hr IV ONETIME PRN PRN Reason: Bleeding Ibuprofen (Motrin) 400 mg PO Q4H PRN PRN Reason: Pain Ibuprofen (Motrin) 800 mg PO Q6H PRN PRN Reason: Pain Last Admin: 03/09/20 04:07 Dose: 800 mg Documented by: Meclizine HCl (Antivert) 25 mg PO Q6H PRN PRN Reason: Nausea Witch Rosalba (Tucks) 1 pad TOP ASDIRECTED PRN PRN Reason: comfort care Last Admin: 03/07/20 20:14 Dose: 1 container Documented by: Discontinued Medications Butorphanol Tartrate (Stadol) 1 mg IVPUSH Q1H PRN PRN Reason: Pain Last Admin: 03/07/20 06:49 Dose: 1 mg Documented by: Calcium Gluconate (Calcium Gluconate) 1 gm IV ASDIRECTED PRN PRN Reason: respiratory distress Carboprost Tromethamine (Hemabate Ds) 250 mcg IM ASDIRECTED PRN PRN Reason: Post Hemorrhage Tranexamic Acid 1,000 mg/ (Sodium Chloride) 110 mls @ 660 mls/hr IV ONETIME PRN PRN Reason: Bleeding Fentanyl/Bupivacaine HCl (Fentanyl/Bupivacaine/Ns 2 Mcg-0.125% 250 Ml) Confirm Administered Dose 250 mls @ as directed .ROUTE .STK-MED ONE Stop: 03/07/20 09:19 Last Admin: 03/07/20 20:58 Dose: Not Given Documented by: Magnesium Sulfate 4 gm/ Premix 100 mls @ 300 mls/hr IV BOLUS ONE Stop: 03/07/20 10:09 Last Infusion: 03/07/20 10:37 Dose: Infused Documented by: Magnesium Sulfate (Magnesium Sulfate In Water Premix) 20 gm in 500 mls @ 50 mls/hr IV ASDIRECTED SEAN Magnesium Sulfate (Magnesium Sulfate In Water Premix) 20 gm in 500 mls @ 50 mls/hr IV Q10H SEAN Last Admin: 03/08/20 16:29 Dose: Not Given Documented by: Lidocaine HCl (Xylocaine 1%) 50 ml INJECT ONETIME PRN PRN Reason: Laceration repair Methylergonovine Maleate (Methergine) 0.2 mg IM ASDIRECTED PRN PRN Reason: Post Hemorrhage Misoprostol (Cytotec) 200 mcg PO ONETIME PRN PRN Reason: Post Hemorrhage Misoprostol (Cytotec) 25 mcg VAG ONETIME PRN PRN Reason: Cervical Ripening Last Admin: 03/07/20 01:44 Dose: 25 mcg Documented by: Misoprostol (Cytotec) 25 mcg VAG Q6H PRN PRN Reason: Cervical Ripening Nalbuphine HCl (Nubain) 10 mg IVPUSH Q1H PRN PRN Reason: Pain (severe 7-10) Ondansetron HCl (Zofran) 4 mg IVPUSH Q6H PRN PRN Reason: Nausea/Vomiting Last Admin: 03/07/20 07:41 Dose: 4 mg Documented by: Sodium Chloride (Saline Flush) 10 ml FLUSH ASDIRECTED PRN PRN Reason: Keep Vein Open Sodium Chloride (Saline Flush) 2.5 ml FLUSH ASDIRECTED PRN PRN Reason: Keep Vein Open Sodium Chloride (Normal Saline) 10 ml IV ASDIRECTED PRN PRN Reason: IV Use Sodium Chloride (Saline Flush) 10 ml FLUSH ASDIRECTED PRN PRN Reason: Keep Vein Open Sodium Chloride (Saline Flush) 2.5 ml FLUSH ASDIRECTED PRN PRN Reason: Keep Vein Open Sodium Chloride (Normal Saline) 10 ml IV ASDIRECTED PRN PRN Reason: IV Use Sterile Water (Sterile Water For Irrigation) 1,000 ml IRR ASDIRECTED PRN PRN Reason: delivery Terbutaline Sulfate (Brethine) 0.25 mg SUBCUT ASDIRECTED PRN PRN Reason: Tacysystole - Interaction Disposition, : to Nursery Interaction: Not Applicable Infant Feeding: Attempted ; Nursed Fair/Poor Support Person: Mother - Recovery Exam Fundal Tone: Firm Fundal Level: At Umbilicus Fundal Placement: Midline Lochia Amount: Scant Lochia Color: Rubra/Red Perineum Description: Other (see below) Other Perinuem Description: 2nd degree laceration with repair. Episiotomy/Laceration: Approximated Bladder Status: Voiding Urinary Elimination: Voided - Exam General: Alert, Oriented HEENT: Pupils Equal, Pupils Reactive, EOMI Lungs: Clear to Auscultation, Normal Respiratory Effort Cardiovascular: Regular Rate, Regular Rhythm GI/Abdominal Exam: Normal Bowel Sounds, Soft, Non-Tender, No Distention, No Mass Extremities: Normal Inspection, Non-Tender, No Pedal Edema, Normal Capillary Refill Skin: Warm, Dry, Intact Wound/Incisions: Healing Well Neurological: Reflexes Equal Bilateral (1+ patellar reflexes bilaterally, no clonus) Psy/Mental Status: Alert, Normal Affect, Normal Mood - Problem List & Annotations (1) Essential hypertension SNOMED Code(s): 96371426 Code(s): I10 - ESSENTIAL (PRIMARY) HYPERTENSION Status: Acute Current Visit: Yes (2) Pre-eclampsia added to pre-existing hypertension SNOMED Code(s): 02115168 Code(s): O11.9 - PRE-EXISTING HYPERTENSION WITH PRE-ECLAMPSIA, UNSP TRIMESTER Status: Acute Current Visit: Yes (3) Hypothyroidism SNOMED Code(s): 47402497 Code(s): E03.9 - HYPOTHYROIDISM, UNSPECIFIED Status: Acute Current Visit: Yes (4) Asthma SNOMED Code(s): 720389286 Code(s): J45.909 - UNSPECIFIED ASTHMA, UNCOMPLICATED Status: Acute Current Visit: Yes (5) Vaginal delivery SNOMED Code(s): 360134971 Code(s): O80 - ENCOUNTER FOR FULL-TERM UNCOMPLICATED DELIVERY Status: Acute Current Visit: No - Problem List Review Problem List Initiated/Reviewed/Updated: Yes - Assessment Assessment:: Patient is a 25 year old female who presented for induction of labor at 39w1d due to essential hypertension and distance. Elevated blood pressure and protein/creatinine ratio of 0.6 following admission, patient was started on Magnesium Sulfate for management of preeclampsia. Magnesium was discontinued [id number] 03/08/20, blood pressures have remained 110-120/60-70. Post day 2 of a live female weighing 3500 g with apgars of 9/9 - Plan Plan:: 1. GBS negative 2. Rubella Immune 3. O+ with a negative antibody screen 4. Preeclampsia - elevated blood pressure with protein/creatinine ratio of 0.6; uric acid 4.6, no evidence of thrombocytopenia or elevated LFTs. Patient started on Magnesium Sulfate at 1037 03/07/20; blood pressures remained stable. Patient did report a mild headache but this has resolved. Today she denies any headaches or changes in vision or abdominal pain. Magnesium levels have remained 4.1, 4.6 and 4.4, 4.5. Magnesium was discontinued 03/08/20 at 1615. Blood pressure has remained stable in 110-120s/60-70s overnight; reflexes were 1+; other vital signs remained stable. - Sarabia removed, good urine output - Magnesium continued for 24 hours - Blood pressures have remained stable following discontinuation of Magnesium 5. Essential hypertension - Methergine contraindicated for management of hemorrhage 6. Hypothyroidism - did not require levothyroxine during care, TSH 2.34 and free T4 .79 on 08/26/19. 7. Asthma - Hemabate (carboprost) contraindicated for management of hemorrhage 8. as tolerated 9. Routine care 10. Plan to discharge home following observation period after Magnesium discontinuation
[2020-03-09] MEDS: Acetaminophen 500 MG Tab PO PRN ×2 (17:01→22:18)
[2020-03-09 19:42] VITALS: PULSE 64
[2020-03-09] MEDS ORDERED: Measles, Mumps & Rubella Vaccine 0.5 ML SDV SUBCUT ONE (23:42)
[2020-03-10 07:33] VITALS: BP 119/81
== END 2020-03-09 23:57 | disposition home or self-care (01) | DRG 807 ==
LOC: MW.OBCHECK 00:26 → MW.OB 00:26 → MW.OBCHECK 00:51 → OBSVTOIN 18:43 → MW.OB 23:15
PROVIDERS: ADMIT Obstetrics & Gynecology; ATTEND Obstetrics & Gynecology
PROC: 10E0XZZ Delivery of Products of Conception, External Approach (ICD-10-PCS; principal; 2020-03-07)
PROC: 0KQM0ZZ Repair Perineum Muscle, Open Approach (ICD-10-PCS; 2020-03-07)
PROC: 10907ZC Drainage of Amniotic Fluid, Therapeutic from Products of Conception, Via Natural or Artificial Opening (ICD-10-PCS; 2020-03-07)
PROC: 3E033VJ Introduction of Other Hormone into Peripheral Vein, Percutaneous Approach (ICD-10-PCS; 2020-03-07)
PROC: 3E0P7VZ Introduction of Hormone into Female Reproductive, Via Natural or Artificial Opening (ICD-10-PCS; 2020-03-07)
PROC: 10H07YZ Insertion of Other Device into Products of Conception, Via Natural or Artificial Opening (ICD-10-PCS; 2020-03-07)
PROC: 3E0R3BZ Introduction of Anesthetic Agent into Spinal Canal, Percutaneous Approach (ICD-10-PCS; 2020-03-07)
PROC: 00HU33Z Insertion of Infusion Device into Spinal Canal, Percutaneous Approach (ICD-10-PCS; 2020-03-07)
PROC: 3E0234Z Introduction of Serum, Toxoid and Vaccine into Muscle, Percutaneous Approach (ICD-10-PCS; 2020-03-09)
DX: O11.4 Pre-existing hypertension with pre-eclampsia, complicating childbirth (principal); Z37.0 Single live birth; Z3A.39 39 weeks gestation of pregnancy; O99.284 Endocrine, nutritional and metabolic diseases complicating childbirth; E03.9 Hypothyroidism, unspecified; O99.52 Diseases of the respiratory system complicating childbirth; J45.909 Unspecified asthma, uncomplicated; O70.1 Second degree perineal laceration during delivery; O99.89 Other specified diseases and conditions complicating pregnancy, childbirth and the puerperium; R51 Headache; Z11.59 Encounter for screening for other viral diseases; Z23 Encounter for immunization
CPT/HCPCS: 01967; 36415; 51702; 59020; 59025; 59409; 80053; 82570; 82803; 83735; 84156; 84550; 85007; 85014; 85018; 85027; 86592; 86850; 86900; 86901; 90471; 90707; A9270-GY; G0010; J0595; J2405; J2590; J3475; J7120; U0002